=== PATIENT | female | born 1945 | race Caucasian/White ===

== ENCOUNTER 2020-01-13 01:03 | Outpatient (RCR) | payer MEDICARE, MEDICAID, SELFPAY ==
[2019-12-23 07:46] LABS: Abs Immature Grans 0.06 k/cumm (0.0-0.09); Absolute Basophil Count 0.03 k/cumm (0.0-0.2); Absolute Lymphocyte Count 1.61 k/cumm (1.2-3.4); Absolute Monocyte Count 0.88 k/cumm (0.11-0.7); Absolute Neutrophil Count 8.91 k/cumm (1.2-6.7); Basophils % 0.3; Eosinophils % 0.9; HCT 44.6 % (36.0-46.0); HGB 15.3 g/dL (12.0-15.5); Immature Grans % 0.5 %; Lymphocytes % 13.9; Mean Corp. HGB Concentration 34.3 g/dL (32.0-36.0); Mean Corpuscular Hemoglobin 30.1 pg (27.0-33.0); Mean Corpuscular Volume 87.8 fL (80-95); Mean Platelet Volume 11.9 fL (8.0-11.0); Monocytes % 7.6; Neutrophils % 76.8; Platelet Count 272 x1000/uL (130-400); RBC 5.08 m/cumm (4.00-5.20); RBC Distribution Width 14.5 % (11.7-14.6)
[2019-12-23 08:00] LABS: ALT 13 U/L (14-59); AST 14 U/L (15-37); Albumin 3.2 g/dL (3.4-5.0); Alkaline Phosphatase 92 U/L (46-116); Anion Gap 11.1 mmol/L (3-11); BUN 15 mg/dL (7-18); Bilirubin, Total 0.4 mg/dL (0.2-1.0); CO2 26.9 mmol/L (21.0-32.0); CREATININE 0.77 mg/dL (0.55-1.02); Calcium 9.5 mg/dL (8.5-10.1); Chloride 105 mmol/L (98-107); Glucose 105 mg/dL (74-106); Sodium 143 mmol/L (136-145); Total Protein 6.7 g/dL (6.4-8.2)
[2019-12-23 08:21] LABS: Potassium 2.8 mmol/L (3.5-5.1)
[2019-12-24 11:00] LABS: CA 125 4731 U/mL (<30)
== END 2020-01-13 23:59 | disposition home or self-care (01) ==
LOC: INF 01:03
PROVIDERS: PCP Family Medicine; Visit Provider Internal Medicine Hematology & Oncology
DX: C54.1 Malignant neoplasm of endometrium (principal); C78.6 Secondary malignant neoplasm of retroperitoneum and peritoneum; C80.1 Malignant (primary) neoplasm, unspecified
CPT/HCPCS: 36415; 80053; 86304; 85025

== ENCOUNTER 2020-02-03 03:16 | Outpatient (RCR) | payer MEDICARE, MEDICAID, SELFPAY ==
[2020-01-27 08:52] LABS: Abs Immature Grans 0.05 k/cumm (0.0-0.09); Absolute Basophil Count 0.02 k/cumm (0.0-0.2); Absolute Eosinophil Count 0.17 k/cumm (0.0-0.7); Absolute Lymphocyte Count 1.67 k/cumm (1.2-3.4); Absolute Neutrophil Count 7.59 k/cumm (1.2-6.7); Basophils % 0.2; Eosinophils % 1.7; HCT 41.3 % (36.0-46.0); HGB 13.6 g/dL (12.0-15.5); Immature Grans % 0.5 %; Lymphocytes % 16.5; Mean Corp. HGB Concentration 32.9 g/dL (32.0-36.0); Mean Corpuscular Hemoglobin 29.2 pg (27.0-33.0); Mean Corpuscular Volume 88.8 fL (80-95); Mean Platelet Volume 10.8 fL (8.0-11.0); Monocytes % 5.9; Neutrophils % 75.2; Platelet Count 265 x1000/uL (130-400); RBC 4.65 m/cumm (4.00-5.20); RBC Distribution Width 15.3 % (11.7-14.6)
[2020-01-27 09:05] LABS: ALT 16 U/L (14-59); AST 14 U/L (15-37); Albumin 3.1 g/dL (3.4-5.0); Alkaline Phosphatase 96 U/L (46-116); Anion Gap 7.6 mmol/L (3-11); BUN 7 mg/dL (7-18); Bilirubin, Total 0.3 mg/dL (0.2-1.0); CO2 26.4 mmol/L (21.0-32.0); CREATININE 0.66 mg/dL (0.55-1.02); Calcium 9.3 mg/dL (8.5-10.1); Chloride 103 mmol/L (98-107); Glucose 101 mg/dL (74-106); Magnesium 1.7 mg/dL (1.8-2.4); Potassium 3.9 mmol/L (3.5-5.1); Sodium 137 mmol/L (136-145); Total Protein 6.3 g/dL (6.4-8.2)
[2020-01-27] MEDS: Normal Saline Flush 10 ML SYR IVP (11:30)
[2020-01-28 12:07] LABS: CA 125 1974 U/mL (<30)
[2020-02-03 08:06] LABS: Abs Immature Grans 0.04 k/cumm (0.0-0.09); Absolute Basophil Count 0.03 k/cumm (0.0-0.2); Absolute Eosinophil Count 0.13 k/cumm (0.0-0.7); Absolute Lymphocyte Count 1.63 k/cumm (1.2-3.4); Absolute Monocyte Count 0.69 k/cumm (0.11-0.7); Absolute Neutrophil Count 4.65 k/cumm (1.2-6.7); Basophils % 0.4; Eosinophils % 1.8; HCT 43.6 % (36.0-46.0); HGB 14.7 g/dL (12.0-15.5); Immature Grans % 0.6 %; Lymphocytes % 22.7; Mean Corp. HGB Concentration 33.7 g/dL (32.0-36.0); Mean Corpuscular Hemoglobin 29.6 pg (27.0-33.0); Mean Corpuscular Volume 87.7 fL (80-95); Mean Platelet Volume 11.3 fL (8.0-11.0); Monocytes % 9.6; Neutrophils % 64.9; Platelet Count 235 x1000/uL (130-400); RBC 4.97 m/cumm (4.00-5.20); RBC Distribution Width 15.3 % (11.7-14.6); White Blood Cell Count 7.17 k/cumm (4.4-10.8)
[2020-02-03] MEDS: Normal Saline Flush 10 ML SYR IVP (08:13)
[2020-02-03 08:19] LABS: ALT 14 U/L (14-59); AST 13 U/L (15-37); Albumin 2.9 g/dL (3.4-5.0); Alkaline Phosphatase 88 U/L (46-116); BUN 14 mg/dL (7-18); Bilirubin, Total 0.5 mg/dL (0.2-1.0); CREATININE 0.63 mg/dL (0.55-1.02); Calcium 8.9 mg/dL (8.5-10.1); Chloride 101 mmol/L (98-107); Glucose 112 mg/dL (74-106); Magnesium 1.4 mg/dL (1.8-2.4); Potassium 3.8 mmol/L (3.5-5.1); Sodium 134 mmol/L (136-145); Total Protein 5.9 g/dL (6.4-8.2)
[2020-02-04 10:41] LABS: CA 125 1766 U/mL (<30)
== END 2020-02-13 23:59 | disposition home or self-care (01) ==
LOC: INF 03:16
PROVIDERS: PCP Family Medicine; Visit Provider Internal Medicine Hematology & Oncology
DX: C54.1 Malignant neoplasm of endometrium (principal); Z45.2 Encounter for adjustment and management of vascular access device; C78.6 Secondary malignant neoplasm of retroperitoneum and peritoneum
CPT/HCPCS: 36591; 80053; 86304; 83735; 85025

== ENCOUNTER 2020-03-02 03:53 | Outpatient (RCR) | payer MEDICARE, MEDICAID, SELFPAY ==
[2020-02-24] MEDS: Normal Saline Flush 10 ML SYR IVP (07:13)
[2020-02-24 07:14] LABS: Abs Immature Grans 0.08 k/cumm (0.0-0.09); Absolute Basophil Count 0.04 k/cumm (0.0-0.2); Absolute Eosinophil Count 0.01 k/cumm (0.0-0.7); Absolute Lymphocyte Count 1.45 k/cumm (1.2-3.4); Absolute Monocyte Count 0.65 k/cumm (0.11-0.7); Absolute Neutrophil Count 5.15 k/cumm (1.2-6.7); Basophils % 0.5; Eosinophils % 0.1; HCT 41.6 % (36.0-46.0); HGB 14.3 g/dL (12.0-15.5); Immature Grans % 1.1 %; Lymphocytes % 19.6; Mean Corp. HGB Concentration 34.4 g/dL (32.0-36.0); Mean Corpuscular Hemoglobin 29.6 pg (27.0-33.0); Mean Corpuscular Volume 86.1 fL (80-95); Mean Platelet Volume 11.3 fL (8.0-11.0); Monocytes % 8.8; Neutrophils % 69.9; Platelet Count 238 x1000/uL (130-400); RBC 4.83 m/cumm (4.00-5.20); RBC Distribution Width 15.7 % (11.7-14.6); White Blood Cell Count 7.38 k/cumm (4.4-10.8)
[2020-02-24 07:30] LABS: ALT 18 U/L (14-59); AST 14 U/L (15-37); Albumin 2.5 g/dL (3.4-5.0); Alkaline Phosphatase 92 U/L (46-116); Anion Gap 9.6 mmol/L (3-11); BUN 12 mg/dL (7-18); Bilirubin, Total 0.5 mg/dL (0.2-1.0); CO2 27.4 mmol/L (21.0-32.0); CREATININE 0.66 mg/dL (0.55-1.02); Calcium 8.4 mg/dL (8.5-10.1); Chloride 104 mmol/L (98-107); Glucose 129 mg/dL (74-106); Magnesium 0.8 mg/dL (1.8-2.4); Sodium 141 mmol/L (136-145); Total Protein 5.3 g/dL (6.4-8.2)
[2020-02-24 08:18] LABS: Potassium 2.4 mmol/L (3.5-5.1)
[2020-02-25 11:23] LABS: CA 125 1268 U/mL (<30)
[2020-03-02] MEDS: Normal Saline Flush 10 ML SYR IVP (07:32)
[2020-03-02 07:46] LABS: Abs Immature Grans 0.06 k/cumm (0.0-0.09); Absolute Basophil Count 0.03 k/cumm (0.0-0.2); Absolute Eosinophil Count 0.03 k/cumm (0.0-0.7); Absolute Lymphocyte Count 1.45 k/cumm (1.2-3.4); Absolute Monocyte Count 0.66 k/cumm (0.11-0.7); Absolute Neutrophil Count 4.41 k/cumm (1.2-6.7); Basophils % 0.5; Eosinophils % 0.5; HGB 14.4 g/dL (12.0-15.5); Immature Grans % 0.9 %; Lymphocytes % 21.8; Mean Corp. HGB Concentration 34.3 g/dL (32.0-36.0); Mean Corpuscular Hemoglobin 29.9 pg (27.0-33.0); Mean Corpuscular Volume 87.3 fL (80-95); Mean Platelet Volume 11.3 fL (8.0-11.0); Monocytes % 9.9; Neutrophils % 66.4; Platelet Count 195 x1000/uL (130-400); RBC 4.81 m/cumm (4.00-5.20); RBC Distribution Width 16.5 % (11.7-14.6); White Blood Cell Count 6.64 k/cumm (4.4-10.8)
[2020-03-02 07:58] LABS: ALT 15 U/L (14-59); AST 15 U/L (15-37); Albumin 2.7 g/dL (3.4-5.0); Alkaline Phosphatase 91 U/L (46-116); Anion Gap 5.5 mmol/L (3-11); BUN 12 mg/dL (7-18); Bilirubin, Total 0.4 mg/dL (0.2-1.0); CO2 28.5 mmol/L (21.0-32.0); Calcium 8.7 mg/dL (8.5-10.1); Chloride 102 mmol/L (98-107); Glucose 102 mg/dL (74-106); Potassium 3.8 mmol/L (3.5-5.1); Sodium 136 mmol/L (136-145); Total Protein 5.3 g/dL (6.4-8.2)
[2020-03-03 12:25] LABS: CA 125 1287 U/mL (<30)
== END 2020-03-14 23:59 | disposition home or self-care (01) ==
LOC: INF 03:53
PROVIDERS: PCP Family Medicine; Visit Provider Internal Medicine Hematology & Oncology
DX: C54.1 Malignant neoplasm of endometrium (principal); Z45.2 Encounter for adjustment and management of vascular access device
CPT/HCPCS: 36591; 80053; 86304; 83735; 85025

== ENCOUNTER 2020-04-06 00:48 | Outpatient (RCR) | payer MEDICARE, MEDICAID, SELFPAY ==
[2020-03-30] MEDS: Normal Saline Flush 10 ML SYR IVP (07:38)
[2020-03-30 07:50] LABS: Abs Immature Grans 0.03 k/cumm (0.0-0.09); Absolute Basophil Count 0.03 k/cumm (0.0-0.2); Absolute Eosinophil Count 0.02 k/cumm (0.0-0.7); Absolute Lymphocyte Count 1.37 k/cumm (1.2-3.4); Absolute Monocyte Count 0.38 k/cumm (0.11-0.7); Absolute Neutrophil Count 2.85 k/cumm (1.2-6.7); Basophils % 0.6; Eosinophils % 0.4; HCT 39.4 % (36.0-46.0); HGB 13.5 g/dL (12.0-15.5); Immature Grans % 0.6 %; Lymphocytes % 29.3; Mean Corp. HGB Concentration 34.3 g/dL (32.0-36.0); Mean Corpuscular Hemoglobin 30.6 pg (27.0-33.0); Mean Corpuscular Volume 89.3 fL (80-95); Mean Platelet Volume 11.2 fL (8.0-11.0); Monocytes % 8.1; Platelet Count 180 x1000/uL (130-400); RBC 4.41 m/cumm (4.00-5.20); RBC Distribution Width 17.6 % (11.7-14.6); White Blood Cell Count 4.68 k/cumm (4.4-10.8)
[2020-03-30 08:03] LABS: ALT 14 U/L (14-59); AST 14 U/L (15-37); Albumin 2.4 g/dL (3.4-5.0); Alkaline Phosphatase 76 U/L (46-116); Anion Gap 6.9 mmol/L (3-11); BUN 11 mg/dL (7-18); Bilirubin, Total 0.4 mg/dL (0.2-1.0); CO2 28.1 mmol/L (21.0-32.0); CREATININE 0.53 mg/dL (0.55-1.02); Calcium 8.5 mg/dL (8.5-10.1); Chloride 105 mmol/L (98-107); Glucose 93 mg/dL (74-106); Potassium 3.7 mmol/L (3.5-5.1); Sodium 140 mmol/L (136-145); Total Protein 5.2 g/dL (6.4-8.2)
[2020-03-30 08:10] LABS: Magnesium 0.6 mg/dL (1.8-2.4)
[2020-03-31 12:00] LABS: CA 125 521 U/mL (<30)
[2020-04-06 10:15] LABS: Abs Immature Grans 0.04 k/cumm (0.0-0.09); Absolute Basophil Count 0.03 k/cumm (0.0-0.2); Absolute Eosinophil Count 0.03 k/cumm (0.0-0.7); Absolute Lymphocyte Count 1.26 k/cumm (1.2-3.4); Absolute Monocyte Count 0.56 k/cumm (0.11-0.7); Absolute Neutrophil Count 3.44 k/cumm (1.2-6.7); Basophils % 0.6; Eosinophils % 0.6; HCT 41.9 % (36.0-46.0); HGB 14.2 g/dL (12.0-15.5); Immature Grans % 0.7 %; Lymphocytes % 23.5; Mean Corp. HGB Concentration 33.9 g/dL (32.0-36.0); Mean Corpuscular Hemoglobin 30.4 pg (27.0-33.0); Mean Corpuscular Volume 89.7 fL (80-95); Mean Platelet Volume 11.1 fL (8.0-11.0); Monocytes % 10.4; Neutrophils % 64.2; Platelet Count 265 x1000/uL (130-400); RBC 4.67 m/cumm (4.00-5.20); White Blood Cell Count 5.36 k/cumm (4.4-10.8)
[2020-04-06 10:39] LABS: ALT 14 U/L (14-59); AST 15 U/L (15-37); Albumin 2.5 g/dL (3.4-5.0); Alkaline Phosphatase 89 U/L (46-116); Anion Gap 7.4 mmol/L (3-11); BUN 11 mg/dL (7-18); Bilirubin, Total 0.3 mg/dL (0.2-1.0); CO2 26.6 mmol/L (21.0-32.0); CREATININE 0.56 mg/dL (0.55-1.02); Calcium 8.7 mg/dL (8.5-10.1); Chloride 103 mmol/L (98-107); Glucose 95 mg/dL (74-106); Magnesium 1.2 mg/dL (1.8-2.4); Potassium 4.1 mmol/L (3.5-5.1); Sodium 137 mmol/L (136-145); Total Protein 5.3 g/dL (6.4-8.2)
[2020-04-06] MEDS: Normal Saline Flush 10 ML SYR IVP (11:01)
[2020-04-07 11:45] LABS: CA 125 882 U/mL (<30)
== END 2020-04-14 23:59 | disposition home or self-care (01) ==
LOC: INF 00:48
PROVIDERS: PCP Family Medicine; Visit Provider Internal Medicine Hematology & Oncology
DX: C54.1 Malignant neoplasm of endometrium (principal); Z45.2 Encounter for adjustment and management of vascular access device
CPT/HCPCS: 36591; 80053; 86304; 83735; 85025

== ENCOUNTER 2020-04-27 01:26 | Outpatient (RCR) | payer MEDICARE, MEDICAID, SELFPAY ==
[2020-04-27] MEDS: Normal Saline Flush 10 ML SYR IVP (08:07)
[2020-04-27 08:22] LABS: Abs Immature Grans 0.13 10^3/uL (0.0-0.06); Absolute Basophil Count 0.07 10^3/uL (0.0-0.2); Absolute Eosinophil Count 0.01 10^3/uL (0.0-0.7); Absolute Lymphocyte Count 1.25 10^3/uL (1.2-3.4); Basophils % 1.2; Eosinophils % 0.2; HCT 42.3 % (36.0-46.0); HGB 14.3 g/dL (11.2-15.7); Immature Grans % 2.3; Lymphocytes % 21.7; MCH 31.2 pg (27.0-33.0); MCHC 33.8 % (32.0-36.0); MCV 92.4 fL (80-95); Monocytes % 12.2; Neutrophils % 62.4; Nucleated RBC 0 %; Platelet Count 192 10^3/uL (130-400); RBC 4.58 10^6/uL (3.93-5.22); RDW 17.9 % (11.7-14.6); RDW-SD 60.1 fL; WBC 5.76 10^3/uL (4.4-10.8)
[2020-04-27 08:45] LABS: ALT 12 U/L (14-59); AST 15 U/L (15-37); Albumin 2.6 g/dL (3.4-5.0); Alkaline Phosphatase 85 U/L (46-116); Anion Gap 8.3 mmol/L (3-11); BUN 11 mg/dL (7-18); Bilirubin, Total 0.3 mg/dL (0.2-1.0); CO2 26.7 mmol/L (21.0-32.0); Calcium 8.7 mg/dL (8.5-10.1); Chloride 104 mmol/L (98-107); Glucose 99 mg/dL (74-106); Magnesium 1.1 mg/dL (1.8-2.4); Potassium 3.9 mmol/L (3.5-5.1); Sodium 139 mmol/L (136-145); Total Protein 5.4 g/dL (6.4-8.2)
[2020-04-28 11:11] LABS: CA 125 516 U/mL (<30)
== END 2020-05-15 23:59 | disposition home or self-care (01) ==
LOC: INF 01:26
PROVIDERS: PCP Family Medicine; Visit Provider Internal Medicine Hematology & Oncology
DX: C54.1 Malignant neoplasm of endometrium (principal); Z45.2 Encounter for adjustment and management of vascular access device
CPT/HCPCS: 36591; 80053; 86304; 83735; 85025

== ENCOUNTER 2020-06-05 00:25 | Outpatient (CLI) | payer MEDICARE, MEDICAID, SELFPAY ==
--- NOTE | 2020-06-05 | DI.CT_ITS ---
EXAM: CT CHEST/ABD/PEL W CLINICAL HISTORY: ENDOMETRIAL CA, ASSESS RESPONSE TO TREATMENT TECHNIQUE: Imaging Protocol: Axial computed tomography images with coronal and sagittal reformatted images were created and reviewed CONTRAST MATERIAL: Intravenous: Omnipaque 350 Contrast volume:100 mL Oral: Yes COMPARISON: CT CHEST FOR PULMONARY EMBOLUS from 12/20/2017 FINDINGS: CHEST: Tracheobronchial tree: Patent where visualized. Mediastinum and Shayla: No dominant adenopathy or fluid collection. Pulmonary parenchyma: Mild emphysematous changes are seen in the lungs. There is an infiltrate now s een in the right middle lobe. This may represent atelectasis or pneumonia. No pulmonary nodules are present. Pleura: There is a large right pleural effusion which tracks into the right minor fissure. No left p leural effusion is seen. There is no pneumothorax. Heart: The heart is not dilated. Mild coronary artery calcification is present. No significant peric ardial effusion. Aorta: Thoracic aorta non-dilated. Lymph nodes: Within normal limits. Bones:Multiple sclerotic foci are seen in the bones consistent with metastatic disease.Degenerative c hanges are seen in the thoracic spine. Tubes, Catheters, and Lines: There is a left-sided [id number] catheter. Soft tissues: Mild diffuse subcutaneous edema is present. ABDOMEN: Liver: Multiple round hypodense lesions are seen within the liver consistent with cysts. Liver is no rmal in size. Portal, Superior Mesenteric, and Splenic Veins: Unremarkable. Gallbladder and Biliary Tract: Status post cholecystectomy. The common duct is dilated measuring 1.5 cm. This is unchanged compared to the prior CT examination. Pancreas: Normal density. No inflammatory process. Stable solitary calcification in the head of the pancreas. Spleen: Normal. Adrenals: Stable thickening of the limbs of the adrenal glands. No discrete mass is appreciated. Kidneys: Normal size, contour and axis. No radiodense stones or obstructive uropathy. Bilateral renal cysts. Left nephroureteral stent in good position. Abdominal Aorta: Abdominal portion non-dilated. Atherosclerosis. Bowel: No evidence of bowel obstruction. Mild to moderate diffuse thickening of the wall of the colo n with sparing of portions of the transverse colon and proximal descending colon. No evidence of acu te appendicitis. There is a short loop of small bowel in the anterior central abdomen which shows mo derate wall thickening. Peritoneal Cavity: Small amount of pelvic ascites. Small amount of perihepatic and perisplenic ascit es. Lymph Nodes: Within normal limits. Bones: Degenerative changes are seen in the spine. Grade 1 pseudo spondylolisthesis of L4 on L5 is n oted. Scattered sclerotic foci are seen in the bones. Particularly the posterior elements of L1 and the L3 and L4 vertebral bodies. The findings are suspicious for metastatic disease. Soft Tissues: Diffuse subcutaneous edema is noted. PELVIS: Bladder: Symmetric distention, no gross wall thickening. Reproductive Organs: Calcified mass is seen in the uterus consistent with a fibroid. There is a 1.9 cm right adnexal cyst which appears to be ovarian in origin. Lymph Nodes: Within normal limits. Bones: Please see the bone section above. IMPRESSION: 1. Small amount of abdominal pelvic ascites. 2. Sclerotic foci scattered in the bones suspicious for metastatic disease 3. Small and large bowel wall thickening. An infectious or inflammatory process should be considered . Involvement of the bowel related to insert treatment should also be considered. 4. Left nephroureteral stent without evidence of hydronephrosis. 5. Stable extrahepatic biliary ductal dilatation. Status post cholecystectomy. 6. Mild cyst diffuse subcutaneous edema. 7. Large right pleural effusion. 8. Atelectasis or pneumonia in the right middle lobe. RADIATION DOSE DELIVERED: 880.67mGy.cm Total DLP DATA REPOSITORY: All CT scans at this facility are submitted to the National Radiology Data Registry (NRDR) Dose Index Registry (DIR) with the [employer] ([employer]). RADIATION OPTIMIZATION: All CT scans at this facility use at least one of these dose optimization te chniques: automated exposure control; mA and/or kV adjustment per patient size (includes targeted exa ms where dose is matched to clinical indication); or iterative reconstruction.
[2020-06-05] MEDS: Omnipaque 350 MG/ML 100 ML BTL IJ (10:25)
[2020-06-05] MEDS: Normal Saline - Diluent 50 ML VIAL IV (10:26)
== END 2020-06-05 00:45 ==
PROVIDERS: PCP Family Medicine; Visit Provider Obstetrics & Gynecology Gynecologic Oncology
DX: R18.8 Other ascites (principal); J90 Pleural effusion, not elsewhere classified; R91.8 Other nonspecific abnormal finding of lung field; C54.1 Malignant neoplasm of endometrium
CPT/HCPCS: 36415; 36591; 74177; 80053; 86304; 71260; 83735; 85025; J3490

== ENCOUNTER 2020-06-05 01:21 | Outpatient (RCR) | payer MEDICARE, MEDICAID, SELFPAY ==
[2020-05-18] MEDS: Normal Saline Flush 10 ML SYR IVP (08:07)
[2020-05-18 08:15] LABS: Abs Immature Grans 0.05 10^3/uL (0.0-0.06); Absolute Basophil Count 0.04 10^3/uL (0.0-0.2); Absolute Lymphocyte Count 1.02 10^3/uL (1.2-3.4); Absolute Monocyte Count 0.64 10^3/uL (0.1-0.8); Absolute Neutrophil Count 1.58 10^3/uL (1.2-6.7); Basophils % 1.2; HCT 37.4 % (36.0-46.0); HGB 12.4 g/dL (11.2-15.7); Immature Grans % 1.5; Lymphocytes % 30.6; MCH 31.4 pg (27.0-33.0); MCHC 33.2 % (32.0-36.0); MCV 94.7 fL (80-95); MPV 10.6 fL (8.0-11.0); Monocytes % 19.2; Neutrophils % 47.5; Nucleated RBC 0 %; Platelet Count 185 10^3/uL (130-400); RBC 3.95 10^6/uL (3.93-5.22); RDW 17.8 % (11.7-14.6); RDW-SD 61.8 fL; WBC 3.33 10^3/uL (4.4-10.8)
[2020-05-18 08:28] LABS: ALT 13 U/L (14-59); AST 11 U/L (15-37); Albumin 2.3 g/dL (3.4-5.0); Alkaline Phosphatase 74 U/L (46-116); Anion Gap 7.3 mmol/L (3-11); BUN 23 mg/dL (7-18); Bilirubin, Total 0.3 mg/dL (0.2-1.0); CO2 26.7 mmol/L (21.0-32.0); CREATININE 0.49 mg/dL (0.55-1.02); Calcium 8.3 mg/dL (8.5-10.1); Chloride 108 mmol/L (98-107); Glucose 89 mg/dL (74-106); Magnesium 0.9 mg/dL (1.8-2.4); Potassium 3.4 mmol/L (3.5-5.1); Sodium 142 mmol/L (136-145); Total Protein 5.1 g/dL (6.4-8.2)
[2020-05-19 10:25] LABS: CA 125 451 U/mL (<30)
[2020-06-05] MEDS: Normal Saline Flush 10 ML SYR IVP (08:02)
[2020-06-05 08:12] LABS: Abs Immature Grans 0.05 10^3/uL (0.0-0.06); Absolute Basophil Count 0.02 10^3/uL (0.0-0.2); Absolute Eosinophil Count 0.01 10^3/uL (0.0-0.7); Absolute Lymphocyte Count 0.94 10^3/uL (1.2-3.4); Absolute Monocyte Count 0.48 10^3/uL (0.1-0.8); Absolute Neutrophil Count 1.08 10^3/uL (1.2-6.7); Basophils % 0.8; Eosinophils % 0.4; HGB 11.6 g/dL (11.2-15.7); Immature Grans % 1.9; Lymphocytes % 36.4; MCH 32.1 pg (27.0-33.0); MCHC 33.1 % (32.0-36.0); MPV 11.1 fL (8.0-11.0); Monocytes % 18.6; Neutrophils % 41.9; Nucleated RBC 0 %; Platelet Count 164 10^3/uL (130-400); RBC 3.61 10^6/uL (3.93-5.22); RDW 17.6 % (11.7-14.6); RDW-SD 62.1 fL; WBC 2.58 10^3/uL (4.4-10.8)
[2020-06-05 08:28] LABS: ALT 13 U/L (14-59); AST 14 U/L (15-37); Albumin 2.4 g/dL (3.4-5.0); Alkaline Phosphatase 69 U/L (46-116); Anion Gap 5.6 mmol/L (3-11); BUN 15 mg/dL (7-18); Bilirubin, Total 0.2 mg/dL (0.2-1.0); CO2 28.4 mmol/L (21.0-32.0); CREATININE 0.48 mg/dL (0.55-1.02); Calcium 8.5 mg/dL (8.5-10.1); Chloride 108 mmol/L (98-107); Glucose 87 mg/dL (74-106); Magnesium 0.9 mg/dL (1.8-2.4); Potassium 3.4 mmol/L (3.5-5.1); Sodium 142 mmol/L (136-145); Total Protein 5.2 g/dL (6.4-8.2)
[2020-06-06 11:18] LABS: CA 125 319 U/mL (<30)
== END 2020-06-14 23:59 | disposition home or self-care (01) ==
LOC: INF 01:21
PROVIDERS: Internal Medicine Hematology & Oncology; PCP Family Medicine; Visit Provider Internal Medicine Hematology & Oncology
DX: C50.911 Malignant neoplasm of unspecified site of right female breast (principal); Z45.2 Encounter for adjustment and management of vascular access device; C78.6 Secondary malignant neoplasm of retroperitoneum and peritoneum; C80.1 Malignant (primary) neoplasm, unspecified; C54.1 Malignant neoplasm of endometrium
CPT/HCPCS: 36415; 36591; 80053; 86304; 83735; 85025

== ENCOUNTER 2020-07-20 01:56 | Outpatient (RCR) | payer MEDICARE, MEDICAID, SELFPAY ==
[2020-07-20] MEDS: Normal Saline Flush 10 ML SYR IVP (08:40)
[2020-07-20 08:44] LABS: Abs Immature Grans 0.07 10^3/uL (0.0-0.06); Absolute Basophil Count 0.03 10^3/uL (0.0-0.2); Absolute Eosinophil Count 0.09 10^3/uL (0.0-0.7); Absolute Lymphocyte Count 1.13 10^3/uL (1.2-3.4); Absolute Monocyte Count 0.49 10^3/uL (0.1-0.8); Absolute Neutrophil Count 4.39 10^3/uL (1.2-6.7); Basophils % 0.5; Eosinophils % 1.5; HCT 38.1 % (36.0-46.0); HGB 12.4 g/dL (11.2-15.7); Immature Grans % 1.1; Lymphocytes % 18.2; MCH 32.4 pg (27.0-33.0); MCHC 32.5 % (32.0-36.0); MCV 99.5 fL (80-95); MPV 11.2 fL (8.0-11.0); Monocytes % 7.9; Neutrophils % 70.8; Nucleated RBC 0 %; Platelet Count 184 10^3/uL (130-400); RBC 3.83 10^6/uL (3.93-5.22); RDW 14.4 % (11.7-14.6)
[2020-07-20 08:57] LABS: ALT 12 U/L (14-59); AST 10 U/L (15-37); Albumin 3.5 g/dL (3.4-5.0); Alkaline Phosphatase 73 U/L (46-116); Anion Gap 7.5 mmol/L (3-11); BUN 21 mg/dL (7-18); Bilirubin, Total 0.3 mg/dL (0.2-1.0); CO2 26.5 mmol/L (21.0-32.0); CREATININE 0.62 mg/dL (0.55-1.02); Calcium 9.3 mg/dL (8.5-10.1); Chloride 106 mmol/L (98-107); Glucose 100 mg/dL (74-106); Potassium 3.9 mmol/L (3.5-5.1); Sodium 140 mmol/L (136-145); Total Protein 6.7 g/dL (6.4-8.2)
[2020-08-04 16:50] LABS: CA 125 524 U/mL (<30)
== END 2020-08-14 23:59 | disposition home or self-care (01) ==
LOC: INF 01:56
PROVIDERS: PCP Family Medicine; Visit Provider Internal Medicine Hematology & Oncology
DX: C78.6 Secondary malignant neoplasm of retroperitoneum and peritoneum (principal); C50.911 Malignant neoplasm of unspecified site of right female breast; C54.1 Malignant neoplasm of endometrium; Z45.2 Encounter for adjustment and management of vascular access device
CPT/HCPCS: 36591; 80053; 86304; 85025

== ENCOUNTER 2020-09-14 02:31 | Outpatient (RCR) | payer MEDICARE, MEDICAID, SELFPAY ==
[2020-09-14] MEDS: Normal Saline Flush 10 ML SYR IVP (10:07)
[2020-09-14 10:16] LABS: Abs Immature Grans 0.11 10^3/uL (0.0-0.06); Absolute Basophil Count 0.05 10^3/uL (0.0-0.2); Absolute Eosinophil Count 0.07 10^3/uL (0.0-0.7); Absolute Lymphocyte Count 1.41 10^3/uL (1.2-3.4); Absolute Monocyte Count 0.68 10^3/uL (0.1-0.8); Absolute Neutrophil Count 7.65 10^3/uL (1.2-6.7); Basophils % 0.5; Eosinophils % 0.7; HCT 38.8 % (36.0-46.0); HGB 12.7 g/dL (11.2-15.7); Immature Grans % 1.1; Lymphocytes % 14.1; MCH 31.7 pg (27.0-33.0); MCHC 32.7 % (32.0-36.0); MCV 96.8 fL (80-95); MPV 11.3 fL (8.0-11.0); Monocytes % 6.8; Neutrophils % 76.8; Nucleated RBC 0 %; Platelet Count 209 10^3/uL (130-400); RBC 4.01 10^6/uL (3.93-5.22); RDW 13.4 % (11.7-14.6); RDW-SD 48.5 fL; WBC 9.97 10^3/uL (4.4-10.8)
[2020-09-14 10:29] LABS: ALT 14 U/L (14-59); AST 12 U/L (15-37); Albumin 3.5 g/dL (3.4-5.0); Alkaline Phosphatase 58 U/L (46-116); Anion Gap 10.6 mmol/L (3-11); BUN 20 mg/dL (7-18); Bilirubin, Total 0.3 mg/dL (0.2-1.0); CO2 22.4 mmol/L (21.0-32.0); Calcium 8.9 mg/dL (8.5-10.1); Chloride 107 mmol/L (98-107); Glucose 92 mg/dL (74-106); Magnesium 1.4 mg/dL (1.8-2.4); Potassium 3.6 mmol/L (3.5-5.1); Sodium 140 mmol/L (136-145); Total Protein 6.6 g/dL (6.4-8.2)
[2020-09-15 10:41] LABS: CA 125 2836 U/mL (<30)
== END 2020-09-14 23:59 | disposition home or self-care (01) ==
LOC: INF 02:31
PROVIDERS: PCP Family Medicine; Visit Provider Internal Medicine Hematology & Oncology
DX: C54.1 Malignant neoplasm of endometrium (principal); Z45.2 Encounter for adjustment and management of vascular access device
CPT/HCPCS: 36591; 80053; 86304; 83735; 85025

== ENCOUNTER 2020-10-12 02:26 | Outpatient (RCR) | payer MEDICARE, MEDICAID, SELFPAY ==
[2020-10-12] MEDS: Normal Saline Flush 10 ML SYR IVP (10:27)
[2020-10-12 10:32] LABS: Abs Immature Grans 0.09 10^3/uL (0.0-0.06); Absolute Basophil Count 0.04 10^3/uL (0.0-0.2); Absolute Monocyte Count 0.77 10^3/uL (0.1-0.8); Absolute Neutrophil Count 6.77 10^3/uL (1.2-6.7); Basophils % 0.4; Eosinophils % 1.1; HCT 39.6 % (36.0-46.0); HGB 13.3 g/dL (11.2-15.7); Lymphocytes % 17.1; MCH 31.3 pg (27.0-33.0); MCHC 33.6 % (32.0-36.0); MCV 93.2 fL (80-95); MPV 11.7 fL (8.0-11.0); Monocytes % 8.2; Neutrophils % 72.2; Nucleated RBC 0 %; Platelet Count 218 10^3/uL (130-400); RBC 4.25 10^6/uL (3.93-5.22); RDW 13.1 % (11.7-14.6); RDW-SD 44.9 fL; WBC 9.37 10^3/uL (4.4-10.8)
[2020-10-12 10:44] LABS: ALT 12 U/L (14-59); AST 11 U/L (15-37); Albumin 3.2 g/dL (3.4-5.0); Alkaline Phosphatase 71 U/L (46-116); Anion Gap 8.5 mmol/L (3-11); BUN 14 mg/dL (7-18); Bilirubin, Total 0.4 mg/dL (0.2-1.0); CO2 25.5 mmol/L (21.0-32.0); CREATININE 0.7 mg/dL (0.55-1.02); Calcium 9.1 mg/dL (8.5-10.1); Chloride 104 mmol/L (98-107); Glucose 96 mg/dL (74-106); Magnesium 1.7 mg/dL (1.8-2.4); Potassium 3.1 mmol/L (3.5-5.1); Sodium 138 mmol/L (136-145); Total Protein 6.6 g/dL (6.4-8.2)
[2020-10-13 13:57] LABS: CA 125 3774 U/mL (<30)
== END 2020-10-15 23:59 | disposition home or self-care (01) ==
LOC: INF 02:26
PROVIDERS: PCP Family Medicine; Visit Provider Internal Medicine Hematology & Oncology
DX: C54.1 Malignant neoplasm of endometrium (principal); Z45.2 Encounter for adjustment and management of vascular access device
CPT/HCPCS: 36591; 80053; 86304; 83735; 85025

== ENCOUNTER 2020-11-23 03:00 | Outpatient (RCR) | payer MEDICARE, MEDICAID, SELFPAY ==
[2020-11-23] MEDS: Normal Saline Flush 10 ML SYR IVP (10:09)
[2020-11-23 10:12] LABS: Absolute Basophil Count 0.04 10^3/uL (0.0-0.2); Absolute Eosinophil Count 0.01 10^3/uL (0.0-0.7); Absolute Lymphocyte Count 0.61 10^3/uL (1.2-3.4); Absolute Monocyte Count 0.66 10^3/uL (0.1-0.8); Basophils % 0.4; Eosinophils % 0.1; HCT 27.3 % (36.0-46.0); Lymphocytes % 6.1; MCV 94.1 fL (80-95); MPV 10.8 fL (8.0-11.0); Monocytes % 6.6; Neutrophils % 85.8; Nucleated RBC 0 %; Platelet Count 239 10^3/uL (130-400); RDW 14.1 % (11.7-14.6); RDW-SD 48.4 fL; WBC 10.02 10^3/uL (4.4-10.8)
[2020-11-23 10:23] LABS: ALT 14 U/L (14-59); AST 14 U/L (15-37); Albumin 2.7 g/dL (3.4-5.0); Alkaline Phosphatase 132 U/L (46-116); Anion Gap 10.7 mmol/L (3-11); BUN 28 mg/dL (7-18); Bilirubin, Total 0.3 mg/dL (0.2-1.0); CO2 22.3 mmol/L (21.0-32.0); CREATININE 0.8 mg/dL (0.55-1.02); Chloride 106 mmol/L (98-107); Glucose 103 mg/dL (74-106); Potassium 4.2 mmol/L (3.5-5.1); Sodium 139 mmol/L (136-145); Total Protein 6.2 g/dL (6.4-8.2)
== END 2020-12-05 23:59 | disposition home or self-care (01) ==
LOC: INF 03:00
PROVIDERS: PCP Family Medicine; Visit Provider Internal Medicine Hematology & Oncology
DX: C54.1 Malignant neoplasm of endometrium (principal); Z45.2 Encounter for adjustment and management of vascular access device
CPT/HCPCS: 36591; 80053; 85025